=== PATIENT | female | born 1990 | race Caucasian/White ===

== ENCOUNTER 2017-05-16 12:51 | Observation (INO) | payer OTHER ==
[2017-05-16 12:56] VITALS: BP 115/83; PULSE 96; RESP 18; TEMP 98.2; O2SAT 97
--- NOTE | 2017-05-16 13:19 | EDPHY ---
H & P Time Seen by Provider: 05/16/17 12:59 HPI/ROS: CHIEF COMPLAINT: Left-sided chest pain HISTORY OF PRESENT ILLNESS: Patient presents from her primary care office. She developed left-sided chest pain which she describes a soreness in her shoulder blade on the left side this past Monday. She was unable to sleep because it is so painful and is associated with some tightness in her chest. No change with arm movement but it is worse with deep respiration. The symptoms continued today she presented to her primary care office who spoke to Dr. Iris Kitchen her OBGYN and referred her to the emergency department for evaluation. Specific question is to evaluate for the possibility of pulmonary embolism. Symptoms moderate at rest. Not affected by exertion. REVIEW OF SYSTEMS: Eye: no change in vision ENT: no sore throat Cardiac: HPI Pulmonary: No cough or hemoptysis, no recent upper respiratory infection. Abdomen: no vomiting, diarrhea, abdominal pain Musculoskeletal: no back pain or leg swelling Skin: no rash Neuro: no headache Constitutional: no fever : no urinary symptoms A comprehensive 10 point review of systems is otherwise negative aside from elements mentioned in the history of present illness. PAST MEDICAL HISTORY: 37 weeks . No history of DVT or PE. Family history: Negative for premature coronary disease or venous thromboembolism. Social history: No recent long travel or immobilization, did fly to [place] a month ago by plane. General Appearance: Alert and conversant, cooperative. Eyes: No scleral icterus. ENT, Mouth: Normal mucous membranes. Respiratory: Normal respiratory effort, breath sounds equal, lungs are clear to auscultation. Cardiovascular: Regular rate and rhythm. Gastrointestinal: Gravid, no splenic tenderness. Neurological: Alert and oriented x3. Normally conversant. Face symmetric, normal movement and sensation in all extremities. Skin: Warm and dry, no rashes. No zoster. Musculoskeletal: No calf tenderness or leg swelling. Psychiatric: Not agitated. Emergency Department course/MDM: Patient did not have tenderness to palpation of scapula, does not have change in symptoms with moving the arm. With advanced and pleuritic left- sided chest pain without alternative explanation, suspicion for pulmonary embolism is at least moderate. Because of do not believe she is a candidate for D-dimer screening. Plan for reviewing the clinic EKG and bilateral leg ultrasound. Discussed with the patient that in order to exclude pulmonary embolism will need to consider proceeding to CT angiography if leg ultrasound is negative. Potential benefit of diagnosing pulmonary embolism or other thoracic disease discussed, potential risks including but not limited to malignancy due to radiation also discussed, and consented. 1350: Discussed with patient's OBGYN Dr. Iris Kitchen who states she agrees with the diagnostic plan. Patient will go upstairs for nonstress test when we are complete. 1352: 12 lead EKG performed today in the office at 11:36 a.m. was faxed to us. Personally reviewed shows sinus tachycardia QT of 350 milliseconds and heart rate of 109. No ischemic changes. 1421: Normal bilateral [facility] The results discussed with the patient. 1429: I-STAT creatinine is 0.4, CT angiography ordered. 1540: Normal CTA of chest per [facility]. Trace pleural effusions. Discussed with Dr. Kitchen by phone, discussed with the patient and her father. She will go upstairs for nonstress test per her OBGYN request. Smoking Status: Never smoked Constitutional: Initial Vital Signs Temperature (C) 36.8 C 05/16/17 12:52 Heart Rate 96 05/16/17 12:52 Respiratory Rate 18 05/16/17 12:52 Blood Pressure 115/83 H 05/16/17 12:52 O2 Sat (%) 97 05/16/17 12:52 O2 Delivery Mode Room Air Allergies/Adverse Reactions: No Known Allergies Allergy (Verified 05/16/17 12:52) Home Medications: Medication Instructions Recorded Vit27&Calcium/Iron/FA 1 each PO DAILY 10/15/12 [ Rx 1 Tablet (RX)] Medical Decision Making - Diagnostics Imaging Results: Imaging Impressions Extremity Venous Study 05/16/17 13:16 Impression: No evidence of deep vein thrombosis in the lower extremities. Findings discussed with STEVE HERNANDEZ 05/16/2017 at 14:16. Chest/Thorax CTA 05/16/17 14:29 Impression: 1. No visible pulmonary embolus. 2. Tiny bilateral pleural effusions with basilar atelectasis. 3. Mild splenomegaly. Findings discussed with Dr. Steve Hernandez on May 16, 2017 at 1533 hours. Differential Diagnosis: Differential diagnosis considered for chest pain including but not limited to myocardial ischemia, aortic dissection, pericarditis, pulmonary embolus, chest wall pain, pleural inflammation and pulmonary infectious causes. - Data Points Laboratory Results: 05/16/17 14:20 POC Hgb 13.6 gm/dL gm/dL (12.6-16.3) POC Hct 40 % % (38-47) POC Sodium 138 mEq/L mEq/L (134-144) POC Potassium 3.6 mEq/L mEq/L (3.3-5.0) POC Chloride 105 mEq/L mEq/L (97-110) POC BUN 4 mg/dL L mg/dL (7-23) POC Creatinine 0.4 mg/dL L mg/dL (0.6-1.0) POC Glucose 86 mg/dL mg/dL (70-100) Point of Care Test Results: 05/16/17 14:20 POC Sodium 138 POC Potassium 3.6 POC Chloride 105 POC BUN 4 L POC Creatinine 0.4 L POC Glucose 86 Departure - Departure Disposition: Home, Routine, Self-Care Clinical Impression: Chest pain Qualifiers: Chest pain type: unspecified Qualified Code(s): R07.9 - Chest pain, unspecified Condition: Good Instructions: Chest Pain (ED) Additional Instructions: Go from the emergency department to Labor and delivery for nonstress test. Dr. Kitchen is aware. Referrals: Nils Martínez MD [Primary Care Provider] - As per Instructions
[2017-05-16] MEDS ORDERED: IOPAMIDOL (ISOVUE 370) 100 ML BTL IV ONE (14:47)
[2017-05-16] MEDS ORDERED: ACETAMINOPHEN 325 MG TAB PO ONE (15:33)
[2017-05-16] MEDS ORDERED: ACETAMINOPHEN 325 MG TAB ONE (15:34)
--- NOTE | 2017-05-16 17:23 | OBPROG ---
Labor Progress Note Assessment/Plan: Assessment:Cat 1 fhr denies pain abdominally states feeling pain in upper left back and upper midsternum feeling positive movement denies leaking bleeding cramping Plan:tylenol, biofreeze alternating heat and cold shower, accupuncture, massage, encouraged patient to come to the office to be seen on monday will call for appt. Verbalized reasons to call the office 05/16/17 17:23 Subjective/Intrapartum Course: 05/16/17 17:19 States has had pain in upper backupper mid sternum pain x 2 days. States feels better with ice over heat. States feeling positive movement. Denies leaking bleeding or cramping Objective: Temp Pulse Resp BP Pulse Ox 36.8 C 96 18 115/83 H 97 05/16/17 12:52 05/16/17 12:52 05/16/17 12:52 05/16/17 12:52 05/16/17 12:52 - Contraction Pattern Assessment Current Contraction Pattern: Irregular - FHR Assessment Song FHR (bpm): 130 FHR Pattern Variability: Moderate FHR Category: 1 - Physical Exam General Appearance: WD/WN, alert, no apparent distress Respiratory: chest non-tender, lungs clear, normal breath sounds Cardiac/Chest: regular rate, rhythm Abdomen: normal bowel sounds Extremities: normal range of motion, Prashant's sign (negative bilaterally) DTR- Lower Extremities: Knee (R): 1+, Knee (L): 1+ (no clonus) Skin: normal color, warm/dry Neuro/Psych: no motor/sensory deficits, alert, normal mood/affect, oriented x 3 Oxytocin Orders Assessment - Pre-Induction/Augmentation Assessment Gestational Age: 37 week(s) and 2 day(s) ICD10 Worksheet Patient Problems: Problems Problem Status Onset Chest pain Acute
== END 2017-05-16 17:00 | disposition home or self-care (01) ==
LOC: FLD 16:39
PROVIDERS: ADMIT Obstetrics & Gynecology; ATTEND Obstetrics & Gynecology
DX: R07.89 Other chest pain (principal); Z3A.37 37 weeks gestation of pregnancy; J90 Pleural effusion, not elsewhere classified; R16.1 Splenomegaly, not elsewhere classified
CPT/HCPCS: 82947-QW; G0378; Q9967

== ENCOUNTER 2017-05-29 09:30 | Observation (INO) | payer OTHER ==
[2017-05-29 10:39] LABS: HEMATOCRIT 37.9 % (38.0-47.0); HEMOGLOBIN 13.3 g/dL (12.6-16.3); LIPEMIA HEMOLYSIS FLAG 90 (0-99); MEAN CELL HEMOGLOBIN 31.4 pg (27.9-34.1); MEAN CELL HEMOGLOBIN CONCENTR. 35.1 g/dL (32.4-36.7); MEAN CELL VOLUME 89.6 fL (81.5-99.8); PLATELET CLUMPS FLAG 0 (0-99); PLATELET COUNT 163 10^3/uL (150-400); RED BLOOD CELL COUNT 4.23 10^6/uL (4.18-5.33); RED CELL DISTRIBUTION WIDTH 13.7 % (11.5-15.2)
--- NOTE | 2017-05-29 14:11 | SOAPPROG ---
SOAP Progress Note Assessment/Plan: Assessment: 27 yo G1 @ 39+ weeks sent (by Dr. Michelle Prieto) from clinic today after patient presented with slip and fall on ice this morning. No fracture on pelvic xray. Abruption labs negative. NST reactive. Plan: Discharge home with precautions, kick-count instructions, and plan to RTC in 4 days for scheduled visit. 05/29/17 14:07 Subjective: 27 yo G1 @ 39 weeks presented to clinic this morning with report of fall on ice. Denies LOC. Denies vaginal bleeding or significant uterine cramping. Reports movement. She is tender on her left hip where she landed on the ground. Dr. Michelle Prieto initially saw patient in clinic today and sent her to L& D for workup and further evaluation. Objective: Laboratory Results 05/29/17 10:22 Assessment: Category I tracing, baseline 125 Sachse: Irregular Fibrinogen >500 - Pending Discharge Pending Discharge Within 24 Hours: Yes Pending Discharge Date: 05/30/17 Pending Discharge Time: 11:00 Physical Exam - Physical Exam General Appearance: alert, no apparent distress Neck: non-tender, supple Respiratory: lungs clear Cardiac/Chest: regular rate, rhythm Abdomen: non-tender, soft, other (gravid, S=D) Pelvic Exam: deferred Skin: normal color, warm/dry Extremities: normal range of motion, non-tender, normal inspection Neuro/Psych: oriented x 3 ICD10 Worksheet Patient Problems: Problems Problem Status Onset Single in third trimester Acute - ICD10 Problem Qualifiers (1) Single in third trimester
== END 2017-05-29 14:32 | disposition home or self-care (01) ==
LOC: FLD 09:30
PROVIDERS: ADMIT Obstetrics & Gynecology Gynecology; ATTEND Obstetrics & Gynecology Gynecology
DX: O26.893 Other specified pregnancy related conditions, third trimester (principal); Z3A.39 39 weeks gestation of pregnancy; M25.552 Pain in left hip; W00.0XXA Fall on same level due to ice and snow, initial encounter
CPT/HCPCS: 59025; 72170; G0378

== ENCOUNTER 2017-06-01 05:17 | Observation (INO) | payer OTHER | END 2017-06-01 06:42 | disposition home or self-care (01) | LOC: FLD 05:17 | PROVIDERS: ADMIT Advanced Practice Midwife; ATTEND Advanced Practice Midwife | DX: O99.89 Other specified diseases and conditions complicating pregnancy, childbirth and the puerperium (principal); Z3A.39 39 weeks gestation of pregnancy | CPT/HCPCS: G0378 ==

== ENCOUNTER 2017-06-01 19:00 | Inpatient (IN) | payer OTHER ==
[2017-06-01] MEDS ORDERED: TERBUTALINE SULFATE 1 MG/ML VIAL IV PRN (20:32)
[2017-06-01] MEDS ORDERED: LR 1,000 ML IV PRN (20:32)
[2017-06-01] MEDS ORDERED: OLIVE OIL 118 ML BTL MISC PRN (20:32)
[2017-06-01] MEDS ORDERED: IBUPROFEN 600 MG TAB PO PRN (20:32)
[2017-06-01] MEDS ORDERED: OXYTOCIN 20 UNIT in LR 1,000 ML IV PRN (20:32)
[2017-06-01] MEDS ORDERED: EPSOM SALT 454 GM TP PRN (20:32)
[2017-06-01] MEDS ORDERED: LIDOCAINE 1% 300 MG/30 ML SDV ONE (20:33)
[2017-06-01] MEDS ORDERED: OXYTOCIN 10 UNIT/ML VIAL ONE (20:33)
[2017-06-01] MEDS ORDERED: AMMONIA AROMATIC 1 EACH AMP IH ONE (20:33)
[2017-06-01] MEDS ORDERED: OLIVE OIL 118 ML BTL ONE (20:33)
[2017-06-01] MEDS ORDERED: TERBUTALINE SULFATE 1 MG/ML VIAL ONE (20:33)
[2017-06-01] MEDS ORDERED: MISOPROSTOL 200 MCG TAB ONE (20:34)
[2017-06-01 20:48] LABS: % IMMATURE GRANULYOCYTES 0.7 % (0.0-1.1); ABSOLUTE IMMATURE GRANULOCYTES 0.09 10^3/uL (0.00-0.10); ADD DIFF? NO; ADD MORPH? NO; ADD SCAN? NO; ATYPICAL LYMPHOCYTE FLAG 0 (0-99); FRAGMENT RBC FLAG 0 (0-99); HEMATOCRIT 38.8 % (38.0-47.0); HEMOGLOBIN 13.2 g/dL (12.6-16.3); LEFT SHIFT FLG 0 (0-99); LIPEMIA HEMOLYSIS FLAG 90 (0-99); MEAN CELL HEMOGLOBIN 30.6 pg (27.9-34.1); MEAN PLATELET VOLUME 10.8 fL (8.7-11.7); PLATELET CLUMPS FLAG 0 (0-99); PLATELET COUNT 168 10^3/uL (150-400); RED BLOOD CELL COUNT 4.31 10^6/uL (4.18-5.33); RED CELL DISTRIBUTION WIDTH 13.6 % (11.5-15.2)
[2017-06-01] MEDS ORDERED: fentaNYL 100 MCG/2 ML INJ ONE (21:22)
[2017-06-01] MEDS ORDERED: fentaNYL 2MCG/ML/BUP 0.1% RTU 100 ML BAG EP ONE (21:23)
[2017-06-01] MEDS ORDERED: PHENYLEPHRINE HCL 100 MCG/ML SYR ONE (21:23)
[2017-06-01] MEDS ORDERED: BUPIVACAINE 0.25% 30 ML SDV ONE (21:23)
--- NOTE | 2017-06-01 21:28 | PREANESOB ---
Obstetric Pre-Anesthesia Info - General Info Proposed Procedure: Labor epidural : 2 Para: 1 JAVID: 06/04/17 Gestational Age: 39 week(s) and 4 day(s) - Info Status: Full Term Monitors: External - Labor Status Cervical Dilation per last OB SVE: 6 Station per last OB SVE: -1 Rupture of Membranes Date: 06/01/17 Indications for Labor Analgesia: Pain Control Labor Epidural: Yes Anesthesia ROS: OCD on Zoloft Allergies/Adverse Reactions: Allergy/AdvReac Type Severity Reaction Status Date / Time No Known Allergies Allergy Verified 05/16/17 12:52 Home Medications: Medication Instructions Recorded Vit27&Calcium/Iron/FA 1 each PO DAILY 10/15/12 [] Visit Medications: Generic Name Dose Route Start Last Admin Trade Name Freq PRN Reason Stop Dose Admin Lactated Ringer's 1,000 mls @ 0 mls/hr 06/01/17 20:32 Lr IV 11/28/17 20:31 PRN PRN SEE PROTOCOL CONDITIONS Protocol Per Protocol Oxytocin 20 unit/ Lactated 1,002 mls @ 150 mls/hr 06/01/17 20:32 Ringer's IV PRN PRN Post- bleeding Ibuprofen 600 mg 06/01/17 20:32 Motrin PO 11/28/17 20:31 Q6HRS PRN post , inflammation Magnesium Sulfate 454 gm 06/01/17 20:32 Epsom Salt TP 11/28/17 20:31 Q1H PRN perineal discomfort Dickey Oil 118 ml 06/01/17 20:32 Sweet Oil MISC 11/28/17 20:31 ONCE PRN perineal massage Terbutaline Sulfate 0.25 mg 06/01/17 20:32 Brethine IV 11/28/17 20:31 ONCE PRN Tachysystole Discontinued Medications Generic Name Dose Route Start Last Admin Trade Name Freq PRN Reason Stop Dose Admin Ammonia (Aromatic Spirit) Confirm 06/01/17 20:33 Ammonia Aromatic Administered 06/01/17 20:34 Dose 1 each IH .STK-MED ONE Bupivacaine HCl Confirm 06/01/17 21:23 Sensorcaine 0.25% Sdv Administered 06/01/17 21:24 Dose 30 ml .ROUTE .STK-MED ONE Ephedrine Sulfate Confirm 06/01/17 20:33 Ephedrine Sulfate Administered 06/01/17 20:34 Dose 50 mg .ROUTE .STK-MED ONE Fentanyl Confirm 06/01/17 21:22 Sublimaze Administered 06/01/17 21:23 Dose 100 mcg .ROUTE .STK-MED ONE Fentanyl/Bupivacaine HCl Confirm 06/01/17 21:23 Fentanyl/Bupivacaine/Ns 2 Mcg/Ml 0.1% (Premix Administered 06/01/17 21:24 Dose 100 ml EP .STK-MED ONE Lidocaine HCl Confirm 06/01/17 20:33 Lidocaine Hcl 1% Administered 06/01/17 20:34 Dose 300 mg .ROUTE .STK-MED ONE Misoprostol Confirm 06/01/17 20:34 Cytotec Administered 06/01/17 20:35 Dose 1,000 mcg .ROUTE .STK-MED ONE Dickey Oil Confirm 06/01/17 20:33 Sweet Oil Administered 06/01/17 20:34 Dose 118 ml .ROUTE .STK-MED ONE Oxytocin Confirm 06/01/17 20:33 Pitocin Administered 06/01/17 20:34 Dose 40 unit .ROUTE .STK-MED ONE Phenylephrine HCl Confirm 06/01/17 21:23 Neosynephrine Administered 06/01/17 21:24 Dose 1,000 mcg .ROUTE .STK-MED ONE Terbutaline Sulfate Confirm 06/01/17 20:33 Brethine Administered 06/01/17 20:34 Dose 1 mg .ROUTE .STK-MED ONE - Vital Signs Height/Weight (Nursing): Height 175.26 cm Weight 85.275 kg - Focused Exam Neck exam: FROM Mallampati Score: Class 2 Mouth exam: normal dental/mouth exam Pulmonary: clear to auscultation Cardiovascular: regular rate and rhythym Labs: 06/01/17 19:30 - Plan Consent Signed and on Chart: Yes Patient/Guardian Understands and Agrees to Plan: Yes
[2017-06-01] MEDS ORDERED: PHENYLEPHRINE HCL 100 MCG/ML SYR IVP PRN (21:57)
[2017-06-01] MEDS ORDERED: fentaNYL 2MCG/ML/BUP 0.1% RTU 100 ML EP SCH (22:00)
--- NOTE | 2017-06-01 23:05 | POSTANESTH ---
Post Anesthetic Evaluation Cardiovascular Status: Normal, Stable Respiratory Status: Normal, Stable Level of Consciousness/Mental Status: Can Participate in Eval Pain Control: Adequate, Prn Tx Ordered Nausea/Vomiting Control: Adequate, Prn Tx Ordered Complications Possibly Related to Anesthesia: None Noted (s/p FRANCISCO placement with 0/10 pain with contractions (pain was 9/10 before FRANCISCO placement). Continue PCEA.)
--- NOTE | 2017-06-01 23:08 | OBPROG ---
Labor Progress Note Assessment/Plan: Assessment: 27 y/o @ 39 4/7 wks in active labor Plan: Continue expectant management FHTs - Cat I strip AROM - clear fluid, large amount s/p epidural, comfortable Anticipate 06/01/17 23:00 Subjective/Intrapartum Course: 06/01/17 23:08 Pt presents in active labor at 5 cm. GBS negative. Objective: 06/01/17 19:30 Patient ABO/Rh A POSITIVE 06/01/17 19:30 Pt is comfortable, s/p epidural. - SVE Dilation (cm): 9 Effacement (%): 100 Station: -1 Membranes: AROM Amniotic Fluid Color: Clear - Contraction Pattern Assessment Current Contraction Pattern: Regular - FHR Assessment Song FHR (bpm): 140 FHR Pattern Variability: Moderate FHR Category: 1 - AP Antepartum Course: 06/01/17 23:12 uncomplicated. Pt with h/o anxiety and depression-no meds. Oxytocin Orders Assessment - Pre-Induction/Augmentation Assessment Gestational Age: 39 week(s) and 4 day(s) ICD10 Worksheet Patient Problems: Problems Problem Status Onset Active labor at term Acute Single in third trimester Acute - ICD10 Problem Qualifiers (1) Active labor at term
[2017-06-02] MEDS ORDERED: HYDROCORTISONE 0.5% CREAM TP PRN (00:43)
[2017-06-02] MEDS ORDERED: SIMETHICONE 80 MG TAB CHEW PO PRN (00:43)
--- NOTE | 2017-06-02 00:50 | OBDEL ---
Info Type: Vaginal Presentation at Delivery: Vertex L&D Analgesia/Anesthesia Type: Epidural GBS+: No - Care Provider International Banker/CLOUD OPERATIONS ENGINEER: Mandi Aviles - Hospital Course Intrapartum: 06/01/17 23:08 Pt presents in active labor at 5 cm. GBS negative. Indications for Delivery: Spontaneous Labor Vaginal Delivery - Delivery Provider Delivery Physician/CNM: Lottie Ryan - Labor and Delivery Onset of Contractions Date: 06/01/17 Onset of Contractions Time: 02:00 Onset of Contractions Type: Spontaneous Rupture of Membranes Date: 06/01/17 Rupture of Membranes Time: 22:45 Rupture of Membranes Type: Artificial Amniotic Fluid Color: Clear Dilation Complete Date: 06/01/17 Dilation Complete Time: 23:50 Placenta Delivery Date: 06/02/17 Placenta Delivery Time: 00:28 Total Hours of Labor: 22 Non-surgical Procedures: Amniotomy Laceration: 1st Degree Repair: 3-0, Vicryl Vaginal Sponge Count Correct: Yes Vaginal Needle Count Correct: Yes Vaginal Sweep Performed: Yes EBL: 300 cc Delivery Events: None Data Song Delivery Date: 06/02/17 Delivery Time: 00:22 JAVID: 06/05/17 Gestational Age: 39 week(s) and 4 day(s) Sex of Infant: Male Score (1 Min): 8 Score (5 Min): 9 ICD10 Worksheet Patient Problems: Problems Problem Status Onset Active labor at term Acute (spontaneous vaginal delivery) Acute Single in third trimester Acute - ICD10 Problem Qualifiers (1) Active labor at term (2) (spontaneous vaginal delivery)
[2017-06-02] MEDS: IBUPROFEN 600 MG TAB PO PRN ×4 (01:43→20:21)
[2017-06-02] MEDS: HYDROCODONE/APAP 5/325 TAB PO PRN ×4 (10:13→18:30)
--- NOTE | 2017-06-02 10:51 | OBPP ---
Progress Note Assessment/Plan: Assessment: 27 y/o PPD #1 s/p doing well. Plan: Ibuprofen and [place] prn. support and likely d/c home tomorrow. 06/02/17 10:51 Subjective/ Course: 06/02/17 10:48 Pt is doing well except for cramping this am, improved with Ibuprofen and [place] x 1. Breast feeding is going well and baby is good. She has min lochia, and is ambulating and voiding without difficulty. Objective: 06/01/17 19:30 Patient ABO/Rh A POSITIVE 06/01/17 19:30 Temp Pulse Resp BP Pulse Ox 36.3 C 72 16 117/70 06/02/17 08:00 06/02/17 08:00 06/02/17 08:00 06/02/17 08:00 Uterine Position/Fundal Height: Umbilicus -2 Uterine Tone: Firm Physical Exam - Physical Exam Neck: non-tender, full range of motion, supple Respiratory: chest non-tender, lungs clear, normal breath sounds Cardiac/Chest: regular rate, rhythm Abdomen: normal bowel sounds Extremities: normal range of motion, swelling (no), Prashant's sign (neg)
[2017-06-02] MEDS: DOCUSATE SODIUM 100 MG CAP PO PRN (14:27)
[2017-06-02 16:55] VITALS: O2SAT 96
[2017-06-03] MEDS: IBUPROFEN 600 MG TAB PO PRN ×4 (03:48→22:23)
[2017-06-03] MEDS: HYDROCODONE/APAP 5/325 TAB PO PRN ×3 (06:53→20:35)
[2017-06-03] MEDS: DOCUSATE SODIUM 100 MG CAP PO PRN (06:54)
--- NOTE | 2017-06-03 09:02 | OBPP ---
Progress Note Assessment/Plan: Assessment: well nipples intact pain well managed ff@u scant rubra locia voiding with difficulty perineum approximated minimal swelling Plan:pp day 1 expectant management 06/03/17 09:00 Subjective/ Course: 06/02/17 10:48 Pt is doing well except for cramping this am, improved with Ibuprofen and [place] x 1. Breast feeding is going well and baby is good. She has min lochia, and is ambulating and voiding without difficulty. 06/03/17 08:59 Doing well. Denies difficulties. Pain well managed. well. Cramping with using pain medication to assist with pain relief. Objective: 06/01/17 19:30 Patient ABO/Rh A POSITIVE 06/01/17 19:30 Temp Pulse Resp BP Pulse Ox 36.5 C 74 18 119/73 96 06/02/17 19:51 06/02/17 19:51 06/02/17 19:51 06/02/17 19:51 06/02/17 19:51 Uterine Position/Fundal Height: At Umbilicus Uterine Tone: Firm Physical Exam - Physical Exam General Appearance: WD/WN, alert, no apparent distress Abdomen: other (ff@u/ scant rubra lochia) Extremities: Prashant's sign (negative bilaterally) DTR- Lower Extremities: Knee (R): 1+, Knee (L): 1+ Skin: normal color, warm/dry Neuro/Psych: no motor/sensory deficits, alert, normal mood/affect, oriented x 3
[2017-06-03 22:30] VITALS: RESP 16
[2017-06-04] MEDS: IBUPROFEN 600 MG TAB PO PRN ×2 (05:49→11:34)
[2017-06-04] MEDS: DOCUSATE SODIUM 100 MG CAP PO PRN (08:11)
[2017-06-04] MEDS: HYDROCODONE/APAP 5/325 TAB PO PRN (08:11)
[2017-06-04 09:33] VITALS: TEMP 97.9
[2017-06-04 09:34] VITALS: BP 116/75; PULSE 80
--- NOTE | 2017-06-04 11:19 | OBGCSDC ---
General Delivery Information - General Info : 2 Para: 2 Abortions: 0 Type: Vaginal L&D Analgesia/Anesthesia Type: Epidural Admission Date: 06/01/17 Labs: Patient ABO/Rh A POSITIVE 06/01/17 19:30 Hct 38.8 % (38.0-47.0) 06/01/17 19:30 - Hospital Course Antepartum: 06/01/17 23:12 uncomplicated. Pt with h/o anxiety and depression-no meds. Intrapartum: 06/01/17 23:08 Pt presents in active labor at 5 cm. GBS negative. : 06/02/17 10:48 Pt is doing well except for cramping this am, improved with Ibuprofen and [place] x 1. Breast feeding is going well and baby is good. She has min lochia, and is ambulating and voiding without difficulty. 06/03/17 08:59 Doing well. Denies difficulties. Pain well managed. well. Cramping with using pain medication to assist with pain relief. 06/04/17 11:09 Pt is doing well today. She has good pain control with Ibuprofen and occ [place]. She is ambulating, voiding and has min lochia. She hasn't had a BM yet. Breast feeding is going well and baby is doing well. She has sore nipples. O: WE/WN NAD Chest: CTA B CV: RRR no murmur Abd: soft, ND/ NT UFF U-2, Ext: neg Prashant's, NT A/p: 27 y/o PPD #1 s/p doing well d/c home today with Iburprofen, [place] and APNO cream Vaginal - Delivery Provider Delivery Physician/CNM: Lottie Ryan - Diagnosis Labor: Spontaneous Rupture of Membranes Type: Artificial Amniotic Fluid Color: Clear Laceration: 1st Degree Repair: 3-0, Vicryl Delivery Events: None - Procedures Non-surgical Procedures: Amniotomy - Delivery Non-surgical Procedures: Amniotomy EBL: 300 cc [place] Data Song Delivery Date: 06/02/17 Delivery Time: 00:22 JAVID: 06/04/17 Gestational Age: 40 week(s) and 0 day(s) Sex of Infant: Male Weight (gm): 3488 g Score (1 Min): 8 Score (5 Min): 9 Discharge Information - Discharge Information Prescriptions: Hydrocodone/APAP 5/325 [[place] 5/325 (*)] 1 - 2 tab PO Q4HRS PRN #20 tab PRN Reason: Pain, Moderate Ibuprofen [Motrin (*)] 600 mg PO Q6HRS PRN #30 tab PRN Reason: Pain, Inflammatory Instruction/Follow Up: Four Weeks, Six Weeks
== END 2017-06-04 12:05 | disposition home or self-care (01) | DRG 775 ==
LOC: FLD 19:00 → FOB 06-02 02:30
PROVIDERS: ADMIT Advanced Practice Midwife; ATTEND Obstetrics & Gynecology
DX: O70.0 First degree perineal laceration during delivery (principal); Z3A.40 40 weeks gestation of pregnancy; Z37.0 Single live birth
CPT/HCPCS: J2370; J3010; J3105